=== PATIENT | female | born 1975 | race African-American/Black ===

== ENCOUNTER 2017-03-03 08:50 | Emergency (ER) | payer MEDICARE, MEDICAID ==
[~2017-03-03] VITALS: Ht 172.7 cm; Wt 90.0 kg
[~2017-03-03 08:50] MED LIST: AMITRIPTYLIN50 MG PO; CEPHALEXIN500 MG OR; CHOLESTYRAMINE4 G1 PO; COUMADIN5 MG PO; LORTAB 5/3255 MG PO; LORTAB 7.5 OR; LOVENOX100 MG/1 M SC; NO HOME MEDS; OMEPRAZOLE20 M2 PO; PRILOSEC20 MG/CAP PO; XARELTO20 MG PO; ZOFRAN ODT4 MG PO; ZPAK PO
[2017-03-03] MEDS ORDERED: XARELTO20 MG PO (09:26)
[2017-03-03] MEDS ORDERED: GABAPENTIN100 MG PO (09:27)
[2017-03-03] MEDS ORDERED: NEURONTIN300 MG PO (09:33)
[2017-03-03] MEDS ORDERED: TRAMADOL HYDROC50 MG PO (10:15)
[2017-03-03] MEDS ORDERED: EC-NAPROSYN500 MG PO (10:15)
[2017-03-03 10:18] VITALS: BP 121/79
== END 2017-03-03 10:26 | disposition home or self-care (01) ==
LOC: ED 08:50
DX: M19.071 Primary osteoarthritis, right ankle and foot (principal); M25.471 Effusion, right ankle

== ENCOUNTER 2018-02-07 12:51 | Emergency (ER) | payer MEDICARE, MEDICAID ==
[~2018-02-07] VITALS: Ht 172.7 cm; Wt 100.0 kg
[~2018-02-07 12:51] MED LIST changes: +EC-NAPROSYN500 MG PO; +GABAPENTIN100 MG PO; +NEURONTIN300 MG PO; +TRAMADOL HYDROC50 MG PO
[2018-02-07 15:09] LABS: HEMATOCRIT 34.4 % (37.0-47.0); HEMOGLOBIN 10.9 g/dl (12.0-16.0); IMMATURE GRANULOCYTES 0.2 % (0.0-5.0); MEAN CELL VOLUME 87.8 fL CALC (80.0-100.0); MEAN CORPUSCULAR HGB 27.8 pG CALC (26.0-32.0); MEAN CORPUSCULAR HGB CONC 31.7 g/L CALC (32.0-36.0); NEUT# 2.4 thou/uL (2.00-7.15); RED BLOOD COUNT 3.92 mill/uL (4.20-5.60); RED CELL DISTRI WIDTH 15.3 % (11.5-15.5)
[2018-02-07 15:16] LABS: ALBUMIN 3.8 g/dL (3.2-5.0); ALKALINE PHOSPHATASE 71 u/l (38-126); ANION GAP 14 (6-22 (CALC)); BILIRUBIN, TOTAL 0.7 mg/dL (0.0-1.4); BUN 9 mg/dL (7-17); BUN/CREATININE RATIO 11 (12-20 (CALC)); CARBON DIOXIDE 21 mmol/l (22-30); CHLORIDE 112 mmol/l (95-108); CREATININE 0.8 mg/dL (0.5-1.0); GFR > 60 ML/MIN (>=60 (CALC)); GFR FOR AFR.AMER. > 60 ML/MIN (>=60 (CALC)); POTASSIUM 3.2 mmol/l (3.5-5.1); SGOT/AST 27 u/l (14-36); SODIUM 144 mmol/l (137-146); TOTAL PROTEIN 8.2 g/dL (6.3-8.2)
[2018-02-07] MEDS ORDERED: ZITHROMAX250 MG PO (16:35)
[2018-02-07] MEDS ORDERED: DELTASONE20 MG PO (16:35)
[2018-02-07] MEDS ORDERED: PROVENTIL HFA IN (16:35)
[2018-02-07 17:20] VITALS: BP 123/64
== END 2018-02-07 17:27 | disposition home or self-care (01) ==
LOC: ED 12:51
PROVIDERS: Emergency Medicine
DX: J06.9 Acute upper respiratory infection, unspecified (principal); R10.32 Left lower quadrant pain; I82.5Y2 Chronic embolism and thrombosis of unspecified deep veins of left proximal lower extremity; Z79.01 Long term (current) use of anticoagulants; R06.02 Shortness of breath
CPT/HCPCS: Q9967

== ENCOUNTER 2018-11-16 19:57 | Emergency (ER) | payer OTHER, MEDICARE, MEDICAID ==
[~2018-11-16] VITALS: Ht 172.7 cm; Wt 98.0 kg
[~2018-11-16 19:57] MED LIST changes: +DELTASONE20 MG PO; +PROVENTIL HFA IN; +ZITHROMAX250 MG PO
[2018-11-16 21:55] VITALS: BP 125/58
== END 2018-11-16 21:55 | disposition home or self-care (01) | DRG 125 ==
LOC: ED 19:57
PROC: 0HQ1XZZ Repair Face Skin, External Approach (ICD-10-PCS; principal; 2018-11-16)
DX: S01.111A Laceration without foreign body of right eyelid and periocular area, initial encounter (principal); V49.40XA Driver injured in collision with unspecified motor vehicles in traffic accident, initial encounter

== ENCOUNTER 2018-12-07 08:29 | Emergency (ER) | payer OTHER, MEDICARE, MEDICAID ==
[~2018-12-07] VITALS: Ht 172.7 cm; Wt 98.0 kg
[2018-12-07 08:50] VITALS: BP 129/80
== END 2018-12-07 08:50 | disposition home or self-care (01) | DRG 950 ==
LOC: ED 08:29
DX: S01.101D Unspecified open wound of right eyelid and periocular area, subsequent encounter (principal); X58.XXXD Exposure to other specified factors, subsequent encounter

== ENCOUNTER 2023-04-13 02:35 | Emergency (ER) | payer MEDICARE, MEDICAID ==
[~2023-04-13] VITALS: Ht 172.7 cm; Wt 95.0 kg
[2023-04-13 03:28] VITALS: BP 113/74
== END 2023-04-13 03:28 | disposition home or self-care (01) ==
LOC: ED 02:35
PROC: 0HQFXZZ Repair Right Hand Skin, External Approach (ICD-10-PCS; principal; 2023-04-13)
DX: S61.411A Laceration without foreign body of right hand, initial encounter (principal); W25.XXXA Contact with sharp glass, initial encounter

== ENCOUNTER 2023-04-27 15:13 | Emergency (ER) | payer MEDICARE, MEDICAID ==
[~2023-04-27] VITALS: Ht 172.7 cm; Wt 94.0 kg
[2023-04-27] MEDS ORDERED: BACTRIM DS1 TAB PO (15:49)
[2023-04-27 16:11] VITALS: BP 146/82
== END 2023-04-27 16:15 | disposition home or self-care (01) ==
LOC: ED 15:13
PROC: 0H9FXZZ Drainage of Right Hand Skin, External Approach (ICD-10-PCS; principal; 2023-04-27)
DX: L03.113 Cellulitis of right upper limb (principal); S61.216D Laceration without foreign body of right little finger without damage to nail, subsequent encounter; I10 Essential (primary) hypertension; X58.XXXD Exposure to other specified factors, subsequent encounter